=== PATIENT | female | born 1955 | race Caucasian/White ===

== ENCOUNTER 2019-05-05 19:32 | Emergency (ER) | payer MEDICARE ==
[~2019-05-05] VITALS: Ht 165.1 cm; Wt 90.7 kg
--- NOTE | 2019-05-05 19:47 | NUR ---
Dr Collazo into eval patient.
[2019-05-05] MEDS ORDERED: ONDANSETRON 4 MG/2 ML VIAL ONE (19:56)
[2019-05-05] MEDS ORDERED: HYDROMORPHONE 1 MG/1 ML DISP.SYRIN ONE (19:56)
[2019-05-05] MEDS ORDERED: HYDROMORPHONE 1 MG/1 ML DISP.SYRIN IM ONE (20:00)
[2019-05-05] MEDS ORDERED: ONDANSETRON 4 MG/2 ML VIAL IM ONE (20:00)
[2019-05-05] MEDS ORDERED: FAMO-132 PO (20:05)
[2019-05-05] MEDS ORDERED: METF-442 PO (20:05)
[2019-05-05] MEDS ORDERED: CLOP75TA15 PO (20:05)
[2019-05-05] MEDS ORDERED: OMEP20CA11 PO (20:05)
[2019-05-05] MEDS ORDERED: ATOR40TA PO (20:05)
[2019-05-05] MEDS ORDERED: ASPI-605 PO (20:05)
[2019-05-05] MEDS ORDERED: ESCI10TA PO (20:05)
[2019-05-05] MEDS ORDERED: AMLO10TA7 PO (20:05)
[2019-05-05] MEDS ORDERED: BENA40TA8 PO (20:05)
[2019-05-05] MEDS ORDERED: METO-357 PO (20:05)
[2019-05-05] MEDS ORDERED: predniSONE 20 MG TABLET ONE ×2 (20:14→20:16)
[2019-05-05] MEDS ORDERED: predniSONE 50 MG TABLET PO ONE (20:15)
[2019-05-05] MEDS ORDERED: predniSONE 50 MG TABLET ONE (20:15)
--- NOTE | 2019-05-05 20:20 | NUR ---
Patient discharged to home in stable conditon. Written and verbal after care instructions given. Patient verbalizes understanding of instructions. AMBULATORY W/ STABLE GAIT ALL BELONGINGS W/ PT DAUGHTER WILL DRIVE HER HOME
[2019-05-05 20:48] VITALS: BP 149/86
== END 2019-05-05 20:48 | disposition home or self-care (01) ==
LOC: ER 19:41
DX: M54.31 Sciatica, right side (principal); M25.561 Pain in right knee; M25.551 Pain in right hip; E78.5 Hyperlipidemia, unspecified; E11.9 Type 2 diabetes mellitus without complications; F32.9 Major depressive disorder, single episode, unspecified; Z79.82 Long term (current) use of aspirin; Z79.899 Other long term (current) drug therapy; Z79.01 Long term (current) use of anticoagulants
CPT/HCPCS: 96372 ×2; 99283; J1170; J2405; J7512; A4663

== ENCOUNTER 2020-03-30 11:24 | Emergency (ER) | payer MEDICARE, OTHER ==
[~2020-03-30] VITALS: Ht 162.6 cm; Wt 117.9 kg
[~2020-03-30 11:24] MED LIST: AMLO10TA7 PO; ASPI-605 PO; ATOR40TA PO; BENA40TA8 PO; CLOP75TA15 PO; ESCI10TA PO; FAMO-132 PO; METF-442 PO; METO-357 PO; OMEP20CA15 PO
[2020-03-30] MEDS ORDERED: ALBU2.5V38 IH (11:46)
[2020-03-30] MEDS ORDERED: GLIP5TAB13 PO (11:46)
[2020-03-30] MEDS ORDERED: BASAGLAR (11:46)
[2020-03-30] MEDS ORDERED: MELO-107 PO (11:46)
[2020-03-30] MEDS ORDERED: CLOP75TA33 PO (11:46)
[2020-03-30] MEDS ORDERED: HYDR-4077 PO (11:46)
[2020-03-30] MEDS ORDERED: KETOROLAC TROMETHAMINE 15 MG INJ ONE (11:59)
[2020-03-30] MEDS ORDERED: KETOROLAC TROMETHAMINE 15 MG INJ IM ONE (12:00)
[2020-03-30] MEDS ORDERED: HYDROCODONE/APAP 5-325MG TABLET ONE (12:00)
[2020-03-30] MEDS ORDERED: HYDROCODONE/APAP 5-325MG TABLET PO ONE (12:00)
--- NOTE | 2020-03-30 12:24 | NUR ---
Patient discharged to home in stable condition. Written and verbal after care instructions given. Patient verbalizes understanding of instructions. Stressed follow up or return to ER for worsening s/s.
== END 2020-03-30 12:33 | disposition home or self-care (01) ==
LOC: ER 11:24
DX: M51.17 Intervertebral disc disorders with radiculopathy, lumbosacral region (principal); I10 Essential (primary) hypertension; E78.5 Hyperlipidemia, unspecified; I25.10 Atherosclerotic heart disease of native coronary artery without angina pectoris; Z95.5 Presence of coronary angioplasty implant and graft; E11.9 Type 2 diabetes mellitus without complications; Z79.84 Long term (current) use of oral hypoglycemic drugs; Z79.82 Long term (current) use of aspirin; Z79.02 Long term (current) use of antithrombotics/antiplatelets
CPT/HCPCS: 93005; 96372; 99283; J1885; A4663

== ENCOUNTER 2020-08-17 12:52 | Emergency (ER) | payer MEDICARE, OTHER ==
[~2020-08-17] VITALS: Ht 162.6 cm; Wt 108.9 kg
[~2020-08-17 12:52] MED LIST changes: +ALBU2.5V38 IH; +AMLO10TA59 PO; -AMLO10TA7 PO; +BASAGLAR SQ; -CLOP75TA15 PO; +CLOP75TA33 PO; +GLIP5TAB13 PO; +HYDR-4077 PO; +MELO-107 PO
[2020-08-17] MEDS ORDERED: IV NORMAL SALINE 500 ML BAG IV ONE (13:15)
--- NOTE | 2020-08-17 13:15 | NUR ---
Gabby Che, and Mark CHE attempted x4 to place a HL on pt, not able to, Dr Sutherland made aware.
[2020-08-17 14:00] LABS: BASOPHILS # (AUTO) 0.1 K/uL (0.0-8.0); BASOPHILS % (AUTO) 1.1 % (0.0-2.0); EOSINOPHILS # (AUTO) 0.3 K/uL (0.0-0.7); EOSINOPHILS % (AUTO) 3.2 % (0.0-7.0); HEMATOCRIT 40.3 % (31.2-41.9); HEMOGLOBIN 13.7 g/dL (10.9-14.3); LYMPHOCYTES # (AUTO) 1.7 K/uL (20.0-40.0); LYMPHOCYTES % (AUTO) 21.4 % (20.5-51.5); MEAN CORPUSCULAR HEMOGLOBIN 30.5 uug (24.7-32.8); MEAN CORPUSCULAR HGB CONC 34 g/dL (32.3-35.6); MONOCYTES # (AUTO) 0.6 K/uL (2.0-10.0); MONOCYTES % (AUTO) 7.8 % (0.0-11.0); NEUTROPHILS # (AUTO) 5.4 K/uL (1.8-8.9); NEUTROPHILS % (AUTO) 66.5 % (38.5-71.5); PLATELET COUNT (AUTO) 302 K/uL (179-408); RED BLOOD CELL COUNT(AUTO) 4.49 MIL/uL (3.63-4.92); WHITE BLOOD COUNT (AUTO) 8.1 K/uL (3.8-11.8)
[2020-08-17 14:08] LABS: CREATININE 1.1 mg/dL (0.6-1.3); POTASSIUM 4.1 mmol/L (3.5-5.1)
[2020-08-17 14:20] LABS: BILIRUBIN,DIRECT 0.2 mg/dL (0.0-0.2); BILIRUBIN,TOTAL 0.9 mg/dL (0.2-1.0); TOTAL PROTEIN, SERUM 8.6 g/dL (6.4-8.2)
[2020-08-17] MEDS ORDERED: NITR0.4T48 SL (14:29)
[2020-08-17] MEDS ORDERED: METO-357 PO (14:29)
[2020-08-17] MEDS ORDERED: ATOR80TA PO (14:29)
[2020-08-17] MEDS ORDERED: HYDR100T27 PO (14:29)
[2020-08-17] MEDS ORDERED: LIRA0.6P2 SUBCUT (14:29)
[2020-08-17] MEDS ORDERED: DICY20TA11 PO (14:29)
--- NOTE | 2020-08-17 15:09 | NUR ---
IV removed. Catheter intact and site benign. Pressure and 4x4 gauze applied to site. No bleeding noted.
[2020-08-17 15:10] VITALS: BP 141/85
== END 2020-08-17 15:11 | disposition home or self-care (01) ==
LOC: ER 12:52
DX: R07.89 Other chest pain (principal); I25.10 Atherosclerotic heart disease of native coronary artery without angina pectoris; Z95.5 Presence of coronary angioplasty implant and graft; I10 Essential (primary) hypertension; E78.5 Hyperlipidemia, unspecified; R94.31 Abnormal electrocardiogram [ECG] [EKG]; E11.9 Type 2 diabetes mellitus without complications; Z79.84 Long term (current) use of oral hypoglycemic drugs; Z79.82 Long term (current) use of aspirin; Z79.899 Other long term (current) drug therapy; M51.16 Intervertebral disc disorders with radiculopathy, lumbar region; F32.9 Major depressive disorder, single episode, unspecified
CPT/HCPCS: 36415; 70030-TC; 70450; 71045; 85025; 85730; 93005; A4663